=== PATIENT | female | born 1950 | race Caucasian/White ===

== ENCOUNTER 2019-07-05 07:23 | Day surgery (SDC) | payer OTHER ==
[2019-07-03 17:26] VITALS: BMI 39.8
[2019-07-05] MEDS ORDERED: MIDAZOLAM HCL 2 MG/2 ML SINGLE DOSE VIAL ONE (09:03)
[2019-07-05] MEDS ORDERED: SUCCINYLCHOLINE CHLORIDE 200 MG/10 ML SYRINGE ONE (09:03)
--- NOTE | 2019-07-05 09:10 | HP ---
Past Medical History - Primary Care Physician PCP:: Jack Ashby - Admission Chief Complaint: 68yo P1 with bilateral cystic adnexal masses admitted for laparoscopic bilateral salpingoophorectomy. 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: Alzheimer's, CVA, Dementia, Migraine, Multiple Sclerosis, Peripheral Neuropathy, Parkinson's, Seizure, Syncope, TIA, Vertigo, Other Cardiovascular: Yes: HTN Pulmonary: No: Asthma, Bronchitis, Cancer, COPD, O2 Dependent, Pneumonia, Previously Intubated, Pulmonary Embolus, Pulmonary Fibrosis, Sleep Apnea, Other Gastrointestinal: Yes: GERD, Other (Fatty liver, cholelithiasis) Hepatobiliary: No: Cirrhosis, Cholelithiasis, Cholecystitis, Choledocholithiasis , Hepatitis A, Hepatitis B, Hepatitis C, Other Renal/: No: Renal Failure, Renal Inusuff, BPH, Cancer, Hematuria, Hemodialysis , Neurogenic Bladder, Renal Calculi, UTI, Other Reproductive: No: Ectopic , Endometriosis, Fibroids, PID, Polycystic Ovary Syndrome, Postmenopausal, Other ...Para: 1 Heme/Onc: No: Anemia, B12 Deficiency, Bleeding Disorder, Cancer, Current Chemotherapy, Current Radiation Therapy, Hemochromatosis, Hypercoaguable State, Myeloproliferative Synd, Sickle Cell Disease, Sickle Cell Trait, Thrombocytopenia, Other Infectious Disease: No: AIDS, C-Diff, Herpes Zoster, HIV, MRSA, STD's, Tuberculosis, VREF, Other Psych: No: Addictions, Anxiety, Bipolar, Depression, Panic, Psychosis, Schizophrenia, Other Musculoskeletal: No: Bursitis, Chronic low back pain, Hemiparesis, Hemiplegia, Osteoarthritis, Paraplegia, Other Rheumatology: No: Fibromyalgia, Gout, Lupus, Rheumatoid Arthritis, Sarcoidosis, Vasculitis, Other ENT: No: Allergic Rhinitis, Sinusitis, Other Endocrine: Yes: Other (Morbid Obesity) Dermatology: No: Basal Cell, Cellulitis, Eczema, Melanoma, Psoriasis, Squamous Cell, Other - Past Surgical History Past Surgical History: Yes: Appendectomy Hx Myomectomy: No Hx Transabdominal Cerclage: No - Smoking History Smoking history: Never smoked Have you smoked in the past 12 months: No Aproximately how many cigarettes per day: 0 If you are a former smoker, when did you quit?: 0 - Alcohol/Substance Use Hx Alcohol Use: No - Social History Usual Living Arrangement: Yes: With Spouse ADL: Independent History of Recent Travel: No Home Medications - Allergies Allergies/Adverse Reactions: Allergies Allergy/AdvReac Type Severity Reaction Status Date / Time Latex, Natural Rubber Allergy Mild Itching Verified 07/05/19 08:41 - Home Medications Home Medications: Ambulatory Orders NK [No Known Home Medication] 07/05/19 Family Medical History Family History: Unremarkable Review of Systems - Review of Systems Constitutional: reports: No Symptoms Eyes: reports: No Symptoms HENT: reports: No Symptoms Neck: reports: No Symptoms Cardiovascular: reports: No Symptoms Respiratory: reports: No Symptoms Gastrointestinal: reports: No Symptoms Genitourinary: reports: No Symptoms Breasts: reports: No Symptoms Reported Musculoskeletal: reports: No Symptoms Integumentary: reports: No Symptoms Neurological: reports: No Symptoms Endocrine: reports: No Symptoms Hematology/Lymphatic: reports: No Symptoms Psychiatric: reports: No Symptoms Pain Intensity: 0 Physical Exam-[employer] Vital Signs: Vital Signs Temperature 98.3 F 07/05/19 07:55 Pulse Rate 68 07/05/19 07:55 Respiratory Rate 18 07/05/19 07:55 Blood Pressure 144/79 07/05/19 07:55 O2 Sat by Pulse Oximetry (%) 96 07/05/19 07:56 Constitutional: Yes: Well Nourished, No Distress, Calm Eyes: Yes: WNL, Conjunctiva Clear HENT: Yes: WNL, Atraumatic, Normocephalic Neck: Yes: WNL, Supple, Trachea Midline Cardiovascular: Yes: WNL, Regular Rate and Rhythm Respiratory: Yes: WNL, Regular, CTA Bilaterally Gastrointestinal: Yes: WNL, Normal Bowel Sounds, Soft ...Rectal Exam: Yes: WNL Renal/: Yes: WNL Pelvis: Yes: WNL External Genitalia: Yes: Normal Internal Exam Deferred: No Vaginal Exam: Yes: Normal Cervix: Yes: Normal Uterus: Yes: Normal Adnexa: Not Palpable: Left, Right Musculoskeletal: Yes: WNL Extremities: Yes: WNL Edema: No Integumentary: Yes: WNL Neurological: Yes: WNL, Alert, Oriented ...Motor Strength: WNL Psychiatric: Yes: WNL, Alert, Oriented Imaging - Results Ultrasound: Report Reviewed Assessment/Plan 68yo P1 with bilateral cystic adnexal masses admitted for laparoscopic bilateral salpingoophorectomy. We had discussed the risks, benefits, alternatives of surgery at length including but not limited to infection, bleeding, scarring, perforation, bowel/ureter/bladder injury, hysterectomy, etc. Risks of obesity explained. The pt verbalized understanding and requested to proceed with surgery. I emphasized that all surgeries have risks and no guarantees can be provided.
[2019-07-05] MEDS ORDERED: ceFAZolin SODIUM 1 GM VIAL IVPB ONE (09:30)
[2019-07-05] MEDS ORDERED: BUPIVACAINE HCL/PF 0.5% (5 MG/ML) 30 ML VIAL IJ ONE ×2 (09:32→11:15)
[2019-07-05] MEDS ORDERED: ROCURONIUM BROMIDE 50 MG/5 ML SYRINGE ONE (09:48)
[2019-07-05] MEDS ORDERED: NEOSTIGMINE METHYLSULFATE 0.5 MG/ML - 10 ML MDV ONE (10:54)
[2019-07-05] MEDS ORDERED: MORPHINE SULFATE 2 MG/ML VIAL IVPUSH PRN (11:29)
[2019-07-05] MEDS ORDERED: LACTATED RINGERS SOLUTION 1,000 ML IV SCH (11:30)
[2019-07-05] MEDS ORDERED: ONDANSETRON 4 MG/2 ML VIAL ONE (11:45)
[2019-07-05] MEDS ORDERED: ACETAMINOPHEN INJECTION 100 ML IVPB ONE (11:45)
[2019-07-05] MEDS ORDERED: KETOROLAC TROMETHAMINE 30 MG/1 ML VIAL ONE (11:45)
[2019-07-05] MEDS ORDERED: ACETAMINOPHEN 1000 MG/100 ML VIAL (NON FORMULARY) IVPB ONE ×2 (11:50→11:59)
[2019-07-05] MEDS ORDERED: ONDANSETRON 4 MG/2 ML VIAL IVPUSH PRN (11:58)
[2019-07-05] MEDS ORDERED: KETOROLAC TROMETHAMINE 30 MG/1 ML VIAL IVPUSH PRN (12:00)
--- NOTE | 2019-07-05 12:07 | OP ---
Operative Note - Note: Operative Date: 07/05/19 Pre-Operative Diagnosis: Bilateral adnexal masses R>L Operation: Laparoscopic bilateral salpingoophorectomy Findings: Right ovarian cystic mass, left ovary WNL. Omental and bowel adhesions. Normal uterus and Fallopin tubes. Post-Operative Diagnosis: Same as Pre-op Surgeon: Jack Ashby Internet Database Specialist: Kayode Valdes Anesthesiologist/BEDSPREAD CUTTER HAND: Larry Maya Anesthesia: General Specimens Removed: BSO Estimated Blood Loss (mls): 5 Drains & Tubes with Location: Calabrese cath Drains, Volume Out (mls): 120 Blood Volume Replaced (mls): 0 Fluid Volume Replaced (mls): 1,000 Operative Report Dictated: Yes
--- NOTE | 2019-07-05 13:10 | OP ---
DATE OF OPERATION: 07/05/2019 PREOPERATIVE DIAGNOSIS: Bilateral adnexal masses, right larger than left in a postmenopausal female. POSTOPERATIVE DIAGNOSIS: Bilateral adnexal masses, right larger than left in a postmenopausal female. PROCEDURE: Laparoscopic bilateral salpingo-oophorectomy. SURGEON: Jack Ashby MD SOAP DRIER OPERATOR: Kayode Valdes MD ANESTHESIA: Dr. , spinal. COMPLICATIONS: None. PATHOLOGY: Right and left ovaries with fallopian tubes. ESTIMATED BLOOD LOSS: 5 mL. INTRAVENOUS FLUIDS: 1000 mL. URINE OUTPUT: 120 mL of urine clear at the end of the procedure. FINDINGS: The examination under anesthesia was limited by morbid obesity. An atrophic cervix was noted on pelvic examination. The uterus was observed to be small and freely mobile within the pelvis. The laparoscopy revealed normal bowel, liver, and uterus. Both fallopian tubes were also normal. The right ovary contained a 4 x 4-cm cyst that appeared to be simple. The left ovary appeared to be within normal limits. There were adhesions noted between the bowel and the anterior abdominal wall as well as omentum on the right side. There were also some adhesions noted between the bowel and the omentum on the right side of the cul-de-sac. DESCRIPTION OF PROCEDURE: The patient was met preoperatively. Risks, benefits, and alternatives of surgery were discussed in details. All questions were answered. The consent form was reviewed. The patient verbalized her understanding and requested to proceed with the surgery. The patient was then brought to the OR with the IV running. She was placed on the surgical table in the supine position. The general anesthesia was achieved without difficulty. The patient was then placed in a dorsal lithotomy position using adjustable Reji stirrups. She was examined under anesthesia. The examination was limited by patient's body habitus. An atrophic cervix and vagina were noted. The uterus appeared to be small and mobile. No pelvic or adnexal masses could be palpated. The patient was then prepped and draped in the usual sterile fashion. A Calabrese catheter was inserted inside the bladder with a sterile technique. The Calabrese was left to drain to gravity. A HUMI uterine manipulator was inserted inside the uterus without complications. The surgeons then regloved and proceeded with the laparoscopy. A 5-mm infraumbilical incision was made with a knife. A Visiport 5-mm trocar was then introduced through the umbilical incision under direct visualization and into the peritoneal cavity. Atraumatic placement was confirmed. Pneumoperitoneum was then induced with the intra-abdominal pressure limited to 18 mmHg. A 5-mm incision was then made in the right lower quadrant, and the 5-mm trocar was inserted under direct visualization. Another 5-mm incision was then made in the left lower quadrant, and a 5-mm trocar was inserted under direct visualization. A 12-mm incision was then made in the left mid quadrant, and a 12-mm trocar was inserted under direct visualization. The adhesions between the mentum, bowel, and right side of the abdominal wall were lysed using LigaSure with good hemostasis. The bowel and omentum were then retracted into the upper abdomen gently. The right ovary and fallopian tube were visualized. The right ovary contained a 4 x 4-cm ovarian cyst with smooth contours and surface and appeared to be simple. The right infundibulopelvic ligament was ligated using a LigaSure device with good hemostasis. The right ovary with cyst and the fallopian tube were excised using LigaSure device with good hemostasis. The left ovary was then grasped, and the left infundibulopelvic ligament was cauterized and ligated using a LigaSure device with good hemostasis. The left ovary and left fallopian tube were then excised using a LigaSure device with good hemostasis. The specimens were placed inside the Endobag and retrieved from the patient. Once again, survey of the operative site revealed good hemostasis. At that point, all of the instruments were removed from the patient. The left mid quadrant incision that was used for 12-mm trocar was then closed using a 0 Vicryl suture for the fascia. Sponge, lap, and needle counts were correct. The skin incisions were closed using a 4-0 Biosyn suture without complications and with good hemostasis. The patient was returned to supine position. The uterine manipulator and Calabrese catheters were removed. The patient was returned to supine position. She was then transferred to recovery room awake and in stable condition. Kevin [id number]
[2019-07-05 13:27] VITALS: TEMP 97.5
[2019-07-05 15:12] VITALS: BP 102/60; PULSE 67
--- NOTE | 2019-07-10 15:43 | PATH ---
Surgical Pathology Report Patient Name: BRANDON CLARK [facility]. Rec. #: [id number] /Age/Gender: 1950 (Age: 68) / F Account: [id number] [facility] Taken: 07/05/2019 Received: 07/05/2019 Reported: 07/10/2019 Physicians: Jack Ashby M.D. Specimen(s) Received A: RIGHT FALLOPIAN TUBE B: LEFT FALLOPIAN TUBE C: RIGHT OVARY D: LEFT OVARY Clinical History Right adnexal mass, left ovarian cyst Bilateral laparoscopic salpingo-oophorectomy Final Diagnosis A. RIGHT FALLOPIAN TUBE, SALPINGECTOMY: PORTION OF FALLOPIAN TUBE WITH NO SIGNIFICANT PATHOLOGIC CHANGE. B. LEFT FALLOPIAN TUBE, SALPINGECTOMY: PORTION OF FALLOPIAN TUBE WITH NO SIGNIFICANT PATHOLOGIC CHANGE. C. RIGHT OVARY, OOPHORECTOMY: OVARY WITH BENIGN SEROUS CYSTADENOMA. FOCAL ENDOMETRIOSIS PRESENT. SEE COMMENT D. LEFT OVARY, OOPHORECTOMY: OVARY WITH BENIGN SEROUS CYSTADENOMA. Comment: Immunohistochemistry stain CD10 (block C1) performed at [place], [place] ([id number]) interpreted at [facility] highlights the focal stroma of the endometriosis. Electronically Signed Marck Reid M.D. Gross Description A. Received in formalin, labeled "right fallopian tube" is a portion of fallopian tube with attached fimbria measuring 7 cm in length and up to 0.4 cm. The specimen is serially sectioned and reveals unremarkable lumen. Shank Carrier sections submitted in one cassette. B. Received in formalin, labeled "left fallopian tube" is a portion of fallopian tube with attached fimbria measuring 6 cm in length and up to 0.4 cm. The specimen is serially sectioned and reveals unremarkable lumen. Shank Carrier sections submitted in one cassette. C. Received in formalin, labeled "right ovary" is a portion of ovary measuring 4.0 x 2.0 x 1.1 cm. The surface is smooth. Serial sections reveal multiple thin-walled cysts, the largest measures up to 1.8 cm in greatest dimension. The specimen is entirely submitted in 3 cassettes. D. Received in formalin, labeled "left ovary" is a portion of ovary measuring 2.0 x 1.8 x 1.1 cm. The surface is smooth. Serial sections reveal multiple thin-walled cysts, the largest measures up to 0.9 cm in greatest dimension. The specimen is entirely submitted in 2 cassettes. __ KAILEE/07/08/2019 amirah/07/08/2019
== END 2019-07-05 15:12 | disposition home or self-care (01) ==
LOC: JASU-SURG 07:23
PROVIDERS: ATTEND Obstetrics & Gynecology
PROC: 0UB74ZZ Excision of Bilateral Fallopian Tubes, Percutaneous Endoscopic Approach (ICD-10-PCS; 2019-07-05)
PROC: 0UB24ZZ Excision of Bilateral Ovaries, Percutaneous Endoscopic Approach (ICD-10-PCS; principal; 2019-07-05 09:00)
DX: D27.1 Benign neoplasm of left ovary (principal); D27.0 Benign neoplasm of right ovary
CPT/HCPCS: 86850; 86900; 86901; 88302-TC; 88307-TC; 94760; J0131